=== PATIENT | female | born 1990 | race African-American/Black ===

== ENCOUNTER 2017-03-22 10:04 | Outpatient (CLI) | payer OTHER ==
--- NOTE | 2017-03-22 15:08 | RAD ---
LUMBAR SPINE THREE VIEWS: Date: 03-22-17 FINDINGS: Bony detail is decreased due to the overlying soft tissues. Scoliosis convex left is present. No fra cture, dislocation, or disc space narrowing was seen. No obvious bony anomalies were present. IMPRESSION: Scoliosis but no acute findings otherwise. POS: HOME
== END 2017-03-22 10:05 | disposition home or self-care (01) ==
LOC: BURRAD 10:04
PROVIDERS: ATTEND Family Medicine
DX: M54.5 Low back pain (principal); M41.9 Scoliosis, unspecified
CPT/HCPCS: 72100

== ENCOUNTER 2018-08-05 19:02 | Emergency (ER) | payer OTHER, SELFPAY ==
[2018-08-05] MEDS ORDERED: Cyclobenzaprine 10 MG TAB ONE (19:37)
[2018-08-05] MEDS ORDERED: Ketorolac Tromethamine 60 MG/2 ML VIAL ONE (19:37)
== END 2018-08-05 20:06 | disposition home or self-care (01) ==
LOC: BURERS 19:02
DX: M54.5 Low back pain (principal); F17.210 Nicotine dependence, cigarettes, uncomplicated
CPT/HCPCS: 96372; J1885

== ENCOUNTER 2020-09-26 20:33 | Emergency (ER) | payer SELFPAY ==
[2020-09-26] MEDS ORDERED: Benzonatate 100 MG CAP ONE (22:05)
[2020-09-26] MEDS ORDERED: Acetaminophen 500 MG TAB ONE (22:05)
[2020-09-26 22:27] LABS: #Basophils 0.1 thou/uL (0.0-0.2); #Eosinphils 0.1 thou/uL (0.0-0.7); #Lymphocytes 1.6 thou/uL (1.20-3.40); #Monocytes 0.3 thou/uL (0.11-0.59); #Neutrophils 5.4 thou/uL (1.40-6.50); %Eosinophils 1.8 % (0.0-10.0); %Lymphocytes 20.9 % (21.0-51.0); %Monocytes 4.3 % (0.0-10.0); %Neutrophils 72.1 % (42.0-75.0); Hemoglobin 13.5 g/dL (12.0-16.0); Mean Corpuscular HGB CONC 32.1 g/dL (32.0-36.0); Mean Corpuscular Hemoglobin 26.6 pg (27.0-31.0); Mean Corpuscular Volume 82.7 fL (78.0-98.0); Platelet Count 233 thou/uL (130-400); Red Blood Cell (RBC) Count 5.08 mill/uL (4.20-5.40); White Blood Cell (WBC) Count 7.5 thou/uL (4.8-10.8)
[2020-09-26 22:41] LABS: ALT (SGPT) 13 U/L (8-55); AST (SGOT) 8 U/L (5-34); Albumin 3.7 g/dL (3.5-5.0); Alkaline Phosphatase 76 U/L (40-110); Anion Gap 16 mmol/L (10-20); BUN (Urea Nitrogen) 5 mg/dL (7.0-18.7); Bilirubin, Total 0.3 mg/dL (0.2-1.2); Calc. Creatinine Clearance 0 mL/min (70-130); Calcium 8.8 mg/dL (7.8-10.44); Carbon Dioxide 25 mmol/L (22-29); Chloride 101 mmol/L (98-107); Estimated GFR-MDRD Greater than 90; Glucose 113 mg/dL (70-105); Potassium 3.5 mmol/L (3.5-5.1); Protein, Total 6.7 g/dL (6.0-8.3); Sodium 138 mmol/L (136-145)
--- NOTE | 2020-09-26 22:41 | RAD ---
2 VIEWS CHEST: Date: 09/26/2020 PROVIDED CLINICAL HISTORY: Cough and fever. FINDINGS: Cardiac and mediastinal silhouette is within normal limits. Lungs appear clear. No pleural fluid or p neumothorax apparent. IMPRESSION: No evidence for an acute cardiopulmonary process. POS: [facility]
[2020-09-27 16:30] LABS: SARS-CoV-2 MS2 Positive; SARS-CoV-2 N Gene Negative; SARS-CoV-2 S Gene Negative; SARS-CoV-2 by NAA Not Detected (NotDetected); SARS-CoV-2 orf1ab Negative
== END 2020-09-26 23:20 | disposition home or self-care (01) ==
LOC: BURERS 20:33
DX: B34.9 Viral infection, unspecified (principal); Z20.828 Contact with and (suspected) exposure to other viral communicable diseases; F17.210 Nicotine dependence, cigarettes, uncomplicated
CPT/HCPCS: 36415; 71046; 80053; 83605; 85025; 87635; 87804; U0003

== ENCOUNTER 2022-08-26 14:01 | Emergency (ER) | payer OTHER ==
[2022-08-26] MEDS ORDERED: Ondansetron ODT 4 MG TAB ONE (14:33)
[2022-08-26] MEDS ORDERED: Dexamethasone 4 MG TAB ONE (15:17)
== END 2022-08-26 15:23 | disposition home or self-care (01) ==
LOC: BURERS 14:01
DX: B34.9 Viral infection, unspecified (principal); Z20.822 Contact with and (suspected) exposure to COVID-19; F17.210 Nicotine dependence, cigarettes, uncomplicated
CPT/HCPCS: 87804; 99283; J8540; Q0162; U0003; U0005

== ENCOUNTER 2023-02-14 20:06 | Emergency (ER) | payer MEDICAID, OTHER, SELFPAY ==
[2023-02-14 21:12] LABS: BHCG - Serum Negative (NEGATIVE); Pregs Control Background? CLEAR/WHITE (CLR/WHITE); Pregs Control Bar Appear? YES (CONTROL BAR)
[2023-02-14 21:13] LABS: ALT (SGPT) 9 U/L (8-55); AST (SGOT) 9 U/L (5-34); Alkaline Phosphatase 84 U/L (40-110); Anion Gap 12 mmol/L (10-20); BUN (Urea Nitrogen) 8 mg/dL (7.0-18.7); Bilirubin, Total 0.3 mg/dL (0.2-1.2); Calc. Creatinine Clearance 0 mL/min (70-130); Calcium 9.4 mg/dL (7.8-10.44); Carbon Dioxide 23 mmol/L (22-29); Chloride 107 mmol/L (98-107); Estimated GFR 119; Globulin 3.7 g/dL (2.4-3.5); Glucose 91 mg/dL (70-105); Lipase 14 U/L (8-78); Potassium 3.7 mmol/L (3.5-5.1); Protein, Total 7.7 g/dL (6.0-8.3); Sodium 138 mmol/L (136-145)
[2023-02-14 21:15] LABS: #Basophils 0.1 thou/uL (0.0-0.2); #Eosinphils 0.2 thou/uL (0.0-0.7); #Lymphocytes 3.1 thou/uL (1.20-3.40); #Monocytes 0.4 thou/uL (0.11-0.59); #Neutrophils 4.2 thou/uL (1.40-6.50); %Basophils 1.6 % (0.0-1.0); %Eosinophils 2.4 % (0.0-10.0); %Lymphocytes 38.2 % (21.0-51.0); %Monocytes 5.3 % (0.0-10.0); %Neutrophils 52.4 % (42.0-75.0); Hemoglobin 14.5 g/dL (12.0-16.0); Mean Corpuscular HGB CONC 30.6 g/dL (32.0-36.0); Mean Corpuscular Hemoglobin 24.8 pg (27.0-31.0); Mean Platelet Volume 7.9 fL (7.4-10.4); Platelet Count 355 10x3/uL (130-400); RBC Distribution Width 14.9 % (11.5-14.5); Red Blood Cell (RBC) Count 5.87 mill/uL (4.20-5.40)
[2023-02-14 21:27] LABS: Bilirubin Small (Negative); Blood, Urine Negative (Negative); Clarity Clear (Clear); Glucose, Urine (Dipstick) Negative (Negative); Ketone, Urine Trace mg/dL (Negative); Leukocyte Trace (Negative); Nitrite Negative (Negative); Protein, Urine (Dipstick) 30 mg/dL (Neg-Trace); Urobilinogen 0.2 mg/dL (Less than 2); pH, Urine 5.5 (5.0-9.0)
[2023-02-14 21:33] LABS: Prothrombin Time 13.3 sec (12.0-14.7)
[2023-02-14 21:34] LABS: PTT 32.5 sec (22.9-36.1)
[2023-02-14 21:35] LABS: Specific Gravity, Urine Greater/Equal 1.030 (1.005-1.030)
[2023-02-14 21:36] LABS: D-Dimer Test 0.48 *mcg/mL (0.27-0.43)
[2023-02-14 21:39] LABS: Platelet Morphology Comment Appears Adequate; RBC Morphology Normal
[2023-02-14 21:44] LABS: Bacteria/HPF Rare-Few HPF (None Seen); RBC/HPF 0-3 HPF (0-3); Squamous Epithelial 21-50 HPF (0-3)
[2023-02-14 22:29] LABS: SARS-CoV-2 NAA Rapid Test Not Detected (NotDetected)
== END 2023-02-14 23:39 | disposition home or self-care (01) ==
LOC: BURERS 20:06
DX: R07.9 Chest pain, unspecified (principal); F17.210 Nicotine dependence, cigarettes, uncomplicated; Z20.822 Contact with and (suspected) exposure to COVID-19
CPT/HCPCS: 71045; 71275; 80053; 81003; 81015; 83690; 83880; 84484; 84703; 85025; 85379; 85610; 85730; 93005; 94760

== ENCOUNTER 2024-11-09 15:11 | Emergency (ER) | payer OTHER, SELFPAY ==
[~2024-11-09 15:11] MED LIST: Iopamidol 370 76% 100 ML VIAL ONE
[2024-11-09] MEDS ORDERED: Aspirin Chewable 81 MG TAB ONE (15:35)
[2024-11-09 15:36] LABS: #Basophils 0.1 thou/uL (0.0-0.2); #Eosinophils 0.2 thou/uL (0.0-0.7); #Lymphocytes 2.5 thou/uL (1.20-3.40); #Monocytes 0.4 thou/uL (0.11-0.59); %Basophils 1.9 % (0.0-1.0); %Eosinophils 3.4 % (0.0-10.0); %Lymphocytes 40.3 % (21.0-51.0); %Monocytes 5.9 % (0.0-10.0); %Neutrophils 48.5 % (42.0-75.0); Hematocrit 43.8 % (36.0-47.0); Hemoglobin 13.9 g/dL (12.0-16.0); Mean Corpuscular HGB CONC 31.7 g/dL (32.0-36.0); Mean Corpuscular Hemoglobin 24.8 pg (27.0-31.0); Mean Platelet Volume 6.6 fL (7.4-10.4); Platelet Count 334 10x3/uL (130-400); RBC Distribution Width 13.5 % (11.5-14.5); Red Blood Cell (RBC) Count 5.61 mill/uL (4.20-5.40); White Blood Cell (WBC) Count 6.2 10x3/uL (4.8-10.8)
[2024-11-09 15:37] LABS: MDiff Complete? YES
[2024-11-09 15:54] LABS: ALT (SGPT) 14 U/L (8-55); AST (SGOT) 10 U/L (5-34); Albumin 3.1 g/dL (3.5-5.0); Alkaline Phosphatase 80 U/L (40-110); Anion Gap 14 mmol/L (10-20); BUN (Urea Nitrogen) 7 mg/dL (7.0-18.7); Bilirubin, Total 0.2 mg/dL (0.2-1.2); Calc. Creatinine Clearance 0 mL/min (70-130); Carbon Dioxide 22 mmol/L (22-29); Chloride 107 mmol/L (98-107); Estimated GFR 119; Globulin 3.3 g/dL (2.4-3.5); Glucose 116 mg/dL (70-105); Potassium 3.9 mmol/L (3.5-5.1); Protein, Total 6.4 g/dL (6.0-8.3); Sodium 139 mmol/L (136-145)
[2024-11-09 15:55] LABS: BHCG - Serum Negative (NEGATIVE); Pregs Control Background? CLEAR/WHITE (CLR/WHITE); Pregs Control Bar Appear? YES (CONTROL BAR); Troponin I Less than 0.010 ng/mL (< 0.028)
[2024-11-09] MEDS ORDERED: Ketorolac Tromethamine 30 MG (1 mL) VIAL ONE (17:38)
[2024-11-09 18:08] LABS: Troponin I Less than 0.010 ng/mL (< 0.028)
== END 2024-11-09 18:41 | disposition home or self-care (01) ==
LOC: BURERS 15:11
DX: R07.89 Other chest pain (principal); F17.210 Nicotine dependence, cigarettes, uncomplicated
CPT/HCPCS: 36415; 71045; 71275; 80053; 84484; 84703; 85025; 85379; 93005; 94760; 96374; J1885; Q9967

== ENCOUNTER 2025-09-05 11:14 | Emergency (ER) | payer OTHER ==
[2025-09-05] MEDS ORDERED: Acetaminophen 500 MG TAB ONE (12:17)
== END 2025-09-05 12:53 | disposition home or self-care (01) ==
LOC: BURERS 11:14
DX: M43.6 Torticollis (principal); M62.838 Other muscle spasm; I10 Essential (primary) hypertension; E66.9 Obesity, unspecified; F17.210 Nicotine dependence, cigarettes, uncomplicated
CPT/HCPCS: 99283